=== PATIENT | female | born 1950 | race Caucasian/White ===

== ENCOUNTER 2020-03-28 17:31 | Emergency (ER) | payer OTHER ==
[~2020-03-28] VITALS: Ht 160 cm; Wt 108.4 kg
[2020-03-28 17:45] VITALS: BP_SYST 180
--- NOTE | 2020-03-28 17:45 | NUR ---
Patient to ER bed 1 to gown for evaluation. Side rails up.
--- NOTE | 2020-03-28 17:50 | NUR ---
PT AAO BIB AMBULANCE FOR SUDDEN ONSET ON ANXIETY WHILE SHE WAS SLEEPING. PT REPORTS THAT SHE WOKE UP FEELING SHAKY BS(116) AND C/O HER HANDS BEING NUMB. PT CURRENTLY DENIES ANY PAIN.
--- NOTE | 2020-03-28 17:51 | NUR ---
ER Dr. WELLINGTON at bedside examining patient.
[2020-03-28] MEDS ORDERED: LORazepam 2 MG/ML VIAL IM ONE (18:00)
[2020-03-28 19:12] VITALS: BP_SYST 180
== END 2020-03-28 19:12 | disposition home or self-care (01) ==
LOC: SED 17:31
DX: F41.9 Anxiety disorder, unspecified (principal); I10 Essential (primary) hypertension; E03.9 Hypothyroidism, unspecified; M10.9 Gout, unspecified; Z86.79 Personal history of other diseases of the circulatory system
CPT/HCPCS: 96372; 99283; J2060

== ENCOUNTER 2024-02-20 12:38 | Inpatient (IN) | payer OTHER ==
[~2024-02-20] VITALS: Ht 160 cm; Wt 101.2 kg
[2024-02-20 13:15] VITALS: BP_SYST 168; PULSE 88; RESP 22; TEMP 98.3; O2SAT 98
[2024-02-20] MEDS ORDERED: iohexoL 350 mgI/mL, 100 ML INFUS..BTL IV ONE (13:31)
[2024-02-20 14:08] LABS: BASOPHILS # (AUTO) 0.1 K/uL (0.0-0.2); EOSINOPHILS # (AUTO) 0.2 K/uL (0.0-0.4); EOSINOPHILS % (AUTO) 3.4 % (0.0-4.0); HEMATOCRIT 35.5 % (36-48); HEMOGLOBIN 11.4 g/dL (12.0-16.0); LYMPHOCYTES # (AUTO) 0.9 K/uL (1.0-5.5); LYMPHOCYTES % (AUTO) 16.6 % (20.5-51.5); MEAN CORPUSCULAR HEMOGLOBIN 28 pg (27-31); MEAN CORPUSCULAR HGB CONC 32 % (32-36); MEAN CORPUSCULAR VOLUME 88 fL (79.0-98.0); MONOCYTES # (AUTO) 0.2 K/uL (0.0-1.0); MONOCYTES % (AUTO) 4.6 % (1.7-9.3); NEUTROPHILS # (AUTO) 3.9 K/uL (1.8-7.7); NEUTROPHILS % (AUTO) 74.4 % (40.0-70.0); PLATELET COUNT (AUTO) 201 K/uL (130-430); RED BLOOD CELL COUNT(AUTO) 4.06 MIL/uL (4.2-6.2); RED CELL DISTRIBUTION WIDTH 15.3 % (9.0-15.0); WHITE BLOOD COUNT (AUTO) 5.3 K/uL (4.8-10.8)
[2024-02-20 14:40] LABS: ANION GAP 9 (5-15); CALCIUM 8.6 mg/dL (8.4-11.0); CARBON DIOXIDE 28 mmol/L (23-29); CHLORIDE 105 mmol/L (98-107); CREATININE 1.12 mg/dL (0.55-1.30); GLUCOSE 104 mg/dL (74-106); POTASSIUM 4.4 mmol/L (3.5-5.1); SODIUM SERUM 142 mmol/L (136-145); UREA NITROGEN, BLOOD 22 mg/dL (8-21)
[2024-02-20] MEDS: ASPIRIN 81 MG TABLET(ECOTRIN) PO ONE (20:03)
[2024-02-20] MEDS ORDERED: LOSA1TAB40 PO (20:43)
[2024-02-20] MEDS ORDERED: IBUP-1969 PO (20:43)
[2024-02-20] MEDS ORDERED: ROSU5TAB43 PO (20:43)
[2024-02-20] MEDS ORDERED: LEVO50TA8 PO (20:43)
[2024-02-20] MEDS ORDERED: METO100T14 PO (20:43)
[2024-02-20] MEDS ORDERED: ALLO300T2 PO (20:43)
[2024-02-20] MEDS ORDERED: AMLO10TA88 PO (20:43)
[2024-02-20] MEDS: D5/0.45 NS 1,000 ML IV SCH (21:29)
[2024-02-20 22:40] VITALS: O2SAT 97
[2024-02-20] MEDS ORDERED: LORazepam 2 MG/ML VIAL IVP ONE (23:30)
[2024-02-20 23:45] VITALS: BP_SYST 155; PULSE 66; RESP 18; TEMP 97.9
[2024-02-21] MEDS: IBUPROFEN 600 MG TABLET PO PRN (01:16)
[2024-02-21 07:03] LABS: PROTHROMBIN TIME 10.5 SECS (9.5-12.5)
[2024-02-21 07:14] LABS: BASOPHILS % (AUTO) 0.9 % (0.0-2.0); EOSINOPHILS # (AUTO) 0.2 K/uL (0.0-0.4); EOSINOPHILS % (AUTO) 4.1 % (0.0-4.0); HEMATOCRIT 33.1 % (36-48); HEMOGLOBIN 10.8 g/dL (12.0-16.0); LYMPHOCYTES % (AUTO) 24.9 % (20.5-51.5); MEAN CORPUSCULAR HEMOGLOBIN 28 pg (27-31); MEAN CORPUSCULAR HGB CONC 33 % (32-36); MEAN CORPUSCULAR VOLUME 86 fL (79.0-98.0); MONOCYTES # (AUTO) 0.3 K/uL (0.0-1.0); MONOCYTES % (AUTO) 6.5 % (1.7-9.3); NEUTROPHILS # (AUTO) 2.6 K/uL (1.8-7.7); NEUTROPHILS % (AUTO) 63.6 % (40.0-70.0); PLATELET COUNT (AUTO) 183 K/uL (130-430); RED BLOOD CELL COUNT(AUTO) 3.86 MIL/uL (4.2-6.2); RED CELL DISTRIBUTION WIDTH 14.9 % (9.0-15.0); WHITE BLOOD COUNT (AUTO) 4.1 K/uL (4.8-10.8)
[2024-02-21 07:18] LABS: ALANINE AMINOTRANSFERASE 15 U/L (12-78); ANION GAP 7 (5-15); ASPARTATE AMINOTRANSFERASE 15 U/L (10-37); CALCIUM 8.6 mg/dL (8.4-11.0); CARBON DIOXIDE 29 mmol/L (23-29); CHLORIDE 109 mmol/L (98-107); CHOLESTEROL 148 mg/dL (<200); CREATININE 1.03 mg/dL (0.55-1.30); FREE T4 (FREE THYROXINE) 1.1 ng/dL (0.6-1.6); GLUCOSE 85 mg/dL (74-106); HDL CHOLESTEROL 54 mg/dL (>55); POTASSIUM 3.6 mmol/L (3.5-5.1); SODIUM SERUM 145 mmol/L (136-145); THYROID STIMULATING HORMONE 3.09 uIu/mL (0.34-4.82); TOTAL BILIRUBIN 0.4 mg/dL (0.0-1.0); TOTAL PROTEIN, SERUM 6.3 g/dL (6.4-8.3); TRIGLYCERIDES 169 mg/dL (30-150); UREA NITROGEN, BLOOD 17 mg/dL (8-21)
[2024-02-21 07:39] VITALS: BP_SYST 142; PULSE 57; RESP 18; TEMP 97.5; O2SAT 97
[2024-02-21 08:00] VITALS: O2SAT 97
[2024-02-21] MEDS: LEVOTHYROXINE SODIUM 0.05 MG TABLET PO SCH (08:53)
[2024-02-21] MEDS: METOPROLOL TARTRATE 50 MG TABLET PO SCH (08:53)
[2024-02-21] MEDS: PANTOPRAZOLE SODIUM 40 MG TAB PO SCH (08:54)
[2024-02-21] MEDS: amLODIPine BESYLATE 10 MG TABLET PO SCH (08:54)
[2024-02-21] MEDS: ASPIRIN 81 MG TABLET(ECOTRIN) PO SCH (08:54)
[2024-02-21] MEDS: ATORVASTATIN 20 MG TABLET PO SCH (08:55)
[2024-02-21] MEDS: ALLOPURINOL 300 MG TABLET (ZYLOPRIM) PO SCH (08:55)
[2024-02-21] MEDS: FUROSEMIDE 20 MG TABLET PO SCH (08:55)
[2024-02-21] MEDS: LORazepam 2 MG/ML VIAL ONE (10:16)
[2024-02-21 13:49] VITALS: BP_SYST 160; PULSE 54; RESP 16; TEMP 98.6; O2SAT 97
[2024-02-21 16:00] VITALS: BP_SYST 169; PULSE 60; RESP 18; TEMP 98.1; O2SAT 96
[2024-02-21 16:47] LABS: BILIRUBIN,URINE NEGATIVE (NEGATIVE); BLOOD, URINE NEGATIVE (NEGATIVE); GLUCOSE,URINE NEGATIVE (NEGATIVE); KETONES,URINE NEGATIVE (NEGATIVE); LEUKOCYTE ESTERASE ,URINE 2+ (NEGATIVE); NITRITE, URINE POSITIVE (NEGATIVE); PROTEIN URINE NEGATIVE (NEGATIVE); UROBILINOGEN,URINE 0.2 (0.2-1.0)
[2024-02-21 17:32] LABS: COLOR,URINE STRAW (YELLOW)
[2024-02-21 17:33] LABS: BACTERIA,URINE MANY /HPF (None Seen); RBC,URINE 0-3 /HPF (0-3); WBC,URINE 50-80 /HPF (0-3)
[2024-02-21 17:44] LABS: CLARITY/URINE HAZY (CLEAR); MUCUS,URINE None Seen /LPF (None Seen)
[2024-02-21 20:00] VITALS: BP_SYST 146; PULSE 65; RESP 18; TEMP 97.2; O2SAT 96
[2024-02-22 00:04] VITALS: BP_SYST 152; PULSE 57; RESP 18; TEMP 97.9; O2SAT 99
[2024-02-22 07:28] LABS: ALANINE AMINOTRANSFERASE 15 U/L (12-78); ALBUMIN 2.9 g/dL (3.4-4.8); ANION GAP 7 (5-15); ASPARTATE AMINOTRANSFERASE 18 U/L (10-37); CALCIUM 8.3 mg/dL (8.4-11.0); CARBON DIOXIDE 31 mmol/L (23-29); CHLORIDE 106 mmol/L (98-107); CREATININE 1.38 mg/dL (0.55-1.30); GLUCOSE 95 mg/dL (74-106); POTASSIUM 3.7 mmol/L (3.5-5.1); SODIUM SERUM 144 mmol/L (136-145); TOTAL BILIRUBIN 0.4 mg/dL (0.0-1.0); TOTAL PROTEIN, SERUM 6.2 g/dL (6.4-8.3); UREA NITROGEN, BLOOD 26 mg/dL (8-21)
[2024-02-22 08:00] VITALS: BP_SYST 158; PULSE 60; RESP 18; TEMP 97.8; O2SAT 95
[2024-02-22] MEDS: cefTRIAXone 1 GM in D5W 50 ML IV SCH (12:34)
[2024-02-22] MEDS: NITROFURANTOIN MONOHYD/M-CRYST 100 MG CAPSULE (MacroBID) PO ONE (12:34)
[2024-02-22 12:45] VITALS: BP_SYST 155; PULSE 58; RESP 17; TEMP 97.7; O2SAT 97
[2024-02-22 16:00] VITALS: BP_SYST 154; PULSE 59; RESP 18; TEMP 97.9; O2SAT 96
[2024-02-22] MEDS ORDERED: KCL 20 mEq in D5W 1000 mL 1,000 ML IV SCH (18:45)
[2024-02-22 20:00] VITALS: BP_SYST 131; PULSE 60; RESP 18; TEMP 97.7; O2SAT 95
[2024-02-22] MEDS: NITROFURANTOIN MONOHYD/M-CRYST 100 MG CAPSULE (MacroBID) PO SCH (22:31)
[2024-02-22] MEDS: KCL 20 mEq in D5/0.45NS 1000mL 1,000 ML IV SCH (22:41)
[2024-02-22] MEDS: KCL 20 mEq in D5/0.45NS 1000mL 1,000 ML IV ONE (22:42)
[2024-02-23 00:20] VITALS: BP_SYST 122; PULSE 64; RESP 18; TEMP 98.1
[2024-02-23 06:56] LABS: BASOPHILS % (AUTO) 0.8 % (0.0-2.0); EOSINOPHILS # (AUTO) 0.2 K/uL (0.0-0.4); EOSINOPHILS % (AUTO) 4.3 % (0.0-4.0); HEMATOCRIT 32.7 % (36-48); HEMOGLOBIN 10.8 g/dL (12.0-16.0); LYMPHOCYTES % (AUTO) 22.1 % (20.5-51.5); MEAN CORPUSCULAR HEMOGLOBIN 28 pg (27-31); MEAN CORPUSCULAR HGB CONC 33 % (32-36); MEAN CORPUSCULAR VOLUME 86 fL (79.0-98.0); MONOCYTES # (AUTO) 0.3 K/uL (0.0-1.0); MONOCYTES % (AUTO) 7.1 % (1.7-9.3); NEUTROPHILS % (AUTO) 65.7 % (40.0-70.0); PLATELET COUNT (AUTO) 182 K/uL (130-430); RED BLOOD CELL COUNT(AUTO) 3.81 MIL/uL (4.2-6.2); RED CELL DISTRIBUTION WIDTH 14.9 % (9.0-15.0); WHITE BLOOD COUNT (AUTO) 4.6 K/uL (4.8-10.8)
[2024-02-23 07:05] LABS: ANION GAP 8 (5-15); CARBON DIOXIDE 30 mmol/L (23-29); CHLORIDE 106 mmol/L (98-107); CREATININE 1.45 mg/dL (0.55-1.30); GLUCOSE 101 mg/dL (74-106); POTASSIUM 3.5 mmol/L (3.5-5.1); SODIUM SERUM 144 mmol/L (136-145); UREA NITROGEN, BLOOD 32 mg/dL (8-21)
[2024-02-23 07:50] VITALS: BP_SYST 134; PULSE 53; RESP 16; TEMP 97.8; O2SAT 96
[2024-02-23] MEDS ORDERED: ACETAMINOPHEN 325 MG TABLET PO PRN (13:15)
[2024-02-23] MEDS ORDERED: KCL 20 mEq in D5/0.45NS 1000mL 1,000 ML IV SCH (14:00)
[2024-02-23] MEDS: FUROSEMIDE 20 MG TABLET PO ONE (14:36)
[2024-02-23 16:30] VITALS: BP_SYST 154; PULSE 57; RESP 18; TEMP 97.5; O2SAT 97
[2024-02-23 20:00] VITALS: BP_SYST 126; PULSE 67; RESP 18; TEMP 97.7; O2SAT 100
[2024-02-24 07:50] VITALS: BP_SYST 149; PULSE 56; RESP 16; TEMP 97.5; O2SAT 95
[2024-02-24] MEDS: ALLOPURINOL 100 MG TABLET (ZYLOPRIM) PO SCH (10:08)
[2024-02-24] MEDS: FUROSEMIDE 20 MG TABLET PO SCH (10:10)
[2024-02-24] MEDS: ACETAMINOPHEN 325 MG TABLET PO PRN (10:11)
[2024-02-24] MEDS ORDERED: CEPH-548 PO (13:29)
[2024-02-24] MEDS ORDERED: Aspirin Ec PO (13:29)
[2024-02-24] MEDS ORDERED: LOSA-415 PO (13:31)
[2024-02-24 15:45] VITALS: BP_SYST 150; PULSE 60; RESP 18; TEMP 97.8; O2SAT 96
== END 2024-02-24 16:20 | disposition home health service (06) | DRG 69 ==
LOC: SED 12:38 → STU 20:27
PROVIDERS: ADMIT Internal Medicine; ATTEND Internal Medicine
DX: G45.9 Transient cerebral ischemic attack, unspecified (principal); I50.32 Chronic diastolic (congestive) heart failure; I24.89 Other forms of acute ischemic heart disease; N39.0 Urinary tract infection, site not specified; G81.94 Hemiplegia, unspecified affecting left nondominant side; I13.0 Hypertensive heart and chronic kidney disease with heart failure and stage 1 through stage 4 chronic kidney disease, or unspecified chronic kidney disease; E66.01 Morbid (severe) obesity due to excess calories; E03.9 Hypothyroidism, unspecified; E78.5 Hyperlipidemia, unspecified; D63.8 Anemia in other chronic diseases classified elsewhere; N18.9 Chronic kidney disease, unspecified; I87.8 Other specified disorders of veins; I25.10 Atherosclerotic heart disease of native coronary artery without angina pectoris; Z63.4 Disappearance and death of family member; Z79.82 Long term (current) use of aspirin; Z68.39 Body mass index [BMI] 39.0-39.9, adult
CPT/HCPCS: 36415; 70450; 70496; 70498; 70551; 71045; 80048; 80053; 80061; 81000; 81001; 81015; 83735; 83880; 84439; 84443; 84484; 85025; 85610; 85730; 87086; 87186; 93005; 93306; 93970; 97110-GP; 97116-GP; 97530-GP; 99291; G0378; J0696; J2060; J3480; J7060; Q9967